=== PATIENT | male | born 1975 | race Two or more races ===

== ENCOUNTER 2017-09-29 16:00 | Emergency (ER) | payer SELFPAY ==
[~2017-09-29] VITALS: Ht 175.3 cm; Wt 75.0 kg
[2017-09-29 16:08] VITALS: BP 119/81
== END 2017-09-29 16:31 | disposition left against medical advice (07) ==
LOC: ED 16:20
DX: H57.11 Ocular pain, right eye (principal); Z53.21 Procedure and treatment not carried out due to patient leaving prior to being seen by health care provider

== ENCOUNTER 2017-09-29 16:57 | Emergency (ER) | payer SELFPAY ==
[~2017-09-29] VITALS: Ht 175.3 cm; Wt 88.9 kg
[2017-09-29 17:11] VITALS: BP 144/88
[2017-09-29] MEDS ORDERED: LIDOCAINE 2%, 20ML INFIL ONE (17:30)
== END 2017-09-29 20:09 | disposition home or self-care (01) ==
LOC: MERGE 16:57 → ED 20:00
DX: S06.0X0A Concussion without loss of consciousness, initial encounter (principal); S01.81XA Laceration without foreign body of other part of head, initial encounter; S13.4XXA Sprain of ligaments of cervical spine, initial encounter; S39.012A Strain of muscle, fascia and tendon of lower back, initial encounter; F19.10 Other psychoactive substance abuse, uncomplicated; F10.129 Alcohol abuse with intoxication, unspecified; X58.XXXA Exposure to other specified factors, initial encounter; Y93.89 Activity, other specified; Y99.8 Other external cause status; Y92.410 Unspecified street and highway as the place of occurrence of the external cause
CPT/HCPCS: 12052; 70450; 72110; 72125